=== PATIENT | female | born 1990 | race African-American/Black ===

== ENCOUNTER 2022-05-28 18:39 | Emergency (ER) | payer OTHER ==
[2022-05-28 18:49] VITALS: BP 130/89; PULSE 89; RESP 18; TEMP 98; BMI 28.5
[2022-05-28] MEDS ORDERED: ACETAMINOPHEN 325 MG TABLET (FP) PO ONE (21:51)
[2022-05-28] MEDS ORDERED: DIPHTH,PERTUSS(ACELL),TET 0.5 ML DISP.SYRIN IM ONE ×3 (22:21→22:58)
[2022-05-28] MEDS ORDERED: ACETAMINOPHEN 500 MG TABLET (FP) ONE (22:56)
[2022-05-28] MEDS ORDERED: ACETAMINOPHEN 325 MG TABLET (FP) ONE (22:57)
== END 2022-05-28 23:03 | disposition home or self-care (01) ==
LOC: JER 18:39
PROC: 3E0234Z Introduction of Serum, Toxoid and Vaccine into Muscle, Percutaneous Approach (ICD-10-PCS; principal; 2022-05-28)
DX: M79.642 Pain in left hand (principal); M25.552 Pain in left hip; V49.40XA Driver injured in collision with unspecified motor vehicles in traffic accident, initial encounter
CPT/HCPCS: 73130-TC-LT-FY; 73502-TC-LT-FY; 73552-TC-LT-FY; 90715; 99285-25

== ENCOUNTER 2022-08-28 06:13 | Emergency (ER) | payer OTHER ==
[2022-08-28 06:30] VITALS: BMI 27.6
[2022-08-28] MEDS ORDERED: MAG HYDROX/AL HYDROX/SIMETH 30 ML UNIT-DOSE CUP PO ONE (07:48)
[2022-08-28] MEDS ORDERED: ONDANSETRON 4 MG/2 ML VIAL IVPUSH ONE (07:48)
[2022-08-28] MEDS ORDERED: FAMOTIDINE 20 MG/50 ML IVPB 20 MG/50 ML MG IVPB ONE ×2 (07:48→09:21)
[2022-08-28] MEDS ORDERED: LACTATED RINGERS SOLUTION 1,000 ML/1,000 ML INFUS.BAG IV SCH (08:00)
[2022-08-28] MEDS ORDERED: ONDANSETRON 4 MG/2 ML VIAL ONE (09:21)
[2022-08-28] MEDS ORDERED: MAG HYDROX/AL HYDROX/SIMETH 30 ML UNIT-DOSE CUP ONE (09:21)
[2022-08-28 09:39] LABS: BASO % 0.2 % (0-2.0); HEMATOCRIT 41.9 % (32.4-45.2); HEMOGLOBIN 13.9 GM/dL (10.7-15.3); LYMPH % 11.8 % (8-40); MCH 29.7 pg (25.7-33.7); MCHC 33.3 g/dl (32.0-36.0); MEAN CELL VOLUME 89.1 fl (80-96); MEAN PLT VOLUME 9.5 fl (7.5-11.1); MONO % 2.5 % (3.8-10.2); NEUT % 85.5 % (42.8-82.8); PLATELET COUNT 269 10^3/uL (134-434); RDW 14.1 % (11.6-15.6); WHITE BLOOD COUNT 8.2 K/mm3 (4.0-10.0)
[2022-08-28 10:01] LABS: ALBUMIN 4.4 g/dl (3.4-5.0); BLOOD UREA NITROGEN 11.8 mg/dL (7-18); CALCIUM 9.5 mg/dL (8.5-10.1)
[2022-08-28 10:04] LABS: CREATININE 0.6 mg/dL (0.55-1.3)
[2022-08-28 10:06] LABS: BILIRUBIN,TOTAL 0.4 mg/dL (0.2-1); TOT PROT 7.9 g/dl (6.4-8.2)
[2022-08-28 11:55] VITALS: BP 110/65; PULSE 82; RESP 18; TEMP 98
== END 2022-08-28 11:56 | disposition home or self-care (01) ==
LOC: JER 06:13
PROC: 3E033GC Introduction of Other Therapeutic Substance into Peripheral Vein, Percutaneous Approach (ICD-10-PCS; principal; 2022-08-28)
DX: R10.84 Generalized abdominal pain (principal); R11.2 Nausea with vomiting, unspecified
CPT/HCPCS: 0241U-QW; 36415; 80053; 83690; 84703; 85025; 99284-25

== ENCOUNTER 2024-11-13 00:14 | Emergency (ER) | payer OTHER ==
[2024-11-13 00:21] VITALS: BP 118/78; PULSE 93; RESP 18; TEMP 97.6; BMI 26.5
[2024-11-13] MEDS ORDERED: ACETAMINOPHEN INJECTION 100 ML ONE (00:53)
[2024-11-13] MEDS ORDERED: FAMOTIDINE 20 MG/50 ML IVPB 20 MG/50 ML MG IVPB ONE (00:55)
[2024-11-13] MEDS ORDERED: ONDANSETRON 4 MG/2 ML VIAL ONE (00:55)
[2024-11-13] MEDS: ACETAMINOPHEN 1000 MG/100 ML BAG IVPB ONE (00:57)
[2024-11-13] MEDS: ONDANSETRON 4 MG/2 ML VIAL IVPUSH ONE (01:01)
[2024-11-13] MEDS: SODIUM CHLORIDE 1,000 ML IV STA (01:01)
[2024-11-13] MEDS: FAMOTIDINE 20 MG/50 ML IVPB 20 MG/50 ML MG IVPB ONE (01:01)
[2024-11-13 01:08] LABS: BASO % 0.4 % (0-2.0); EOS % 0.1 % (0-4.5); HEMATOCRIT 40.4 % (32.4-45.2); HEMOGLOBIN 13.5 GM/dL (10.7-15.3); LYMPH % 12.1 % (8-40); MCH 29.4 pg (25.7-33.7); MCHC 33.4 g/dl (32.0-36.0); MEAN CELL VOLUME 88.1 fl (80-96); MEAN PLT VOLUME 8.9 fl (7.5-11.1); MONO % 3.1 % (3.8-10.2); NEUT % 84.3 % (42.8-82.8); PLATELET COUNT 249 10^3/uL (134-434); RBC 4.58 M/mm3 (3.60-5.2); RDW 14.7 % (11.6-15.6); WHITE BLOOD COUNT 8.8 K/mm3 (4.0-10.0)
[2024-11-13 02:36] LABS: POTASSIUM 4.3 mmol/L (3.5-5.1)
[2024-11-13 02:38] LABS: CALCIUM 9.5 mg/dL (8.5-10.1)
[2024-11-13 02:39] LABS: ALBUMIN 4.1 g/dl (3.4-5.0); BLOOD UREA NITROGEN 8.5 mg/dL (7-18); MAGNESIUM 1.8 mg/dL (1.8-2.4)
[2024-11-13 02:41] LABS: CREATININE 0.6 mg/dL (0.55-1.3)
[2024-11-13 02:43] LABS: BILIRUBIN,TOTAL 0.8 mg/dL (0.2-1); TOT PROT 7.6 g/dl (6.4-8.2)
== END 2024-11-13 03:03 | disposition home or self-care (01) ==
LOC: JER 00:14
PROC: 3E033GC Introduction of Other Therapeutic Substance into Peripheral Vein, Percutaneous Approach (ICD-10-PCS; principal; 2024-11-13)
PROC: 3E033NZ Introduction of Analgesics, Hypnotics, Sedatives into Peripheral Vein, Percutaneous Approach (ICD-10-PCS; 2024-11-13)
PROC: 3E033GC Introduction of Other Therapeutic Substance into Peripheral Vein, Percutaneous Approach (ICD-10-PCS; 2024-11-13)
DX: R11.2 Nausea with vomiting, unspecified (principal); R10.13 Epigastric pain; R00.0 Tachycardia, unspecified
CPT/HCPCS: 36415; 80053; 83690; 83735; 84703; 85025; 93005; 93010; 99284-25; J0131